=== PATIENT | male | born 1980 | race Two or more races ===

== ENCOUNTER → 2024-09-01 11:29 | Outpatient (BNVA) | payer SELFPAY | PROVIDERS: PCP Internal Medicine Rheumatology; Visit Provider Physician Assistant Medical | DX: Z02.79 Encounter for issue of other medical certificate (principal) ==

== ENCOUNTER 2025-01-07 10:55 | Outpatient (AMB) | payer OTHER, SELFPAY ==
--- NOTE | 2025-01-07 11:00 | MHC.OFFVIS ---
Vital Signs 01/07/25 11:07 Height 5 ft 11.65 in Weight 209 lb 3.499 oz BMI 28.6 BP 110/70 Blood Pressure Location Rt brachial Position Sitting Pulse 97 Pulse Source Pulse Oximeter Pulse Oximetry (%) 97 Oxygen Delivery Method Room Air Intake Visit Reasons: arthritis Intake Note: Pt presents today for arthritis Allergies hydroxychloroquine Allergy (Severe, Verified 01/07/25 11:11) hives amoxicillin Allergy (Verified 01/07/25 11:11) Rash Penicillins Allergy (Verified 01/07/25 11:11) Rash HPI HPI arthritis: Details: New patient visit. Chadian speak. Friend interprets. He was treated for inflammatory arthritis by Dr. Shaw on SSZ 1000mg BID and myofascial pain for gabapentin 300mg qhs. Gabapentin causes sleepiness. He cannot take it during the day. He had swelling in ankles, hands and chronic lower back pain for years. He continues to swelling and pain in hands and left medial elbow. He has elbow pain with activity. He has had heel pain. He recently got new work shoes with custom insoles. No history of PsO or IBD or iritis. He had an episode of bleeding per rectum last week and has colonscopy scheduled for further eval. Lower back pain with sharp pain radiates to buttocks. Increase pain with walking long distances. He has not gone to PT. PMx and Psx: R biceps and R rotator cuff tendon repair by [facility] after workplace injury. Mother had fibromyalgia and arthritis. 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 Occationally drinks alcohol. Nonsmoker. [facility] Medical History (Updated 01/07/25 @ 12:38 by Lopez Weber MD) Rotator cuff injury Review of Systems Const All systems reviewed & are unremarkable except as noted in HPI and below Physical Exam Vital Signs: Last Vital Signs Pulse 97 01/07/25 11:07 BP 110/70 01/07/25 11:07 Pulse Ox 97 01/07/25 11:07 Oxygen Delivery Method Room Air 01/07/25 11:07 BMI result Body Mass Index 28.6 Const Other: General: Comfortable CVS: RRR Respiratory: clear to auscultation bilaterally. Good respiratory effort Skin: No lesions seen MSK:Tender R 3rd and 5th MCP, PIPs of right hand with synovitis of R 5th MCP, PIP and left 2nd MCP. TEnder left medial epicondyl without pain on resisted wrist extension. Normal ROM of shoulders and elbows. 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 Tender bilateral heels at plantar aponeurosis. Soft tissue swelling of right heel. No MTP tenderness. Limited full external rotation of hips. Normal knee flexion. Tender lumbar spinous process, paraspinal muscles and laterally. Normal lumbar flexion and ROM of cervical spine. Assessment & Plan Assessment & Plan (1) Inflammatory arthritis: Comment: He continues to have uncontrolled inflammatory arthritis affecting his hands on sulfasalazine 1000 mg twice a day. He has enthesitis on exam (left medial epicondyle tenderness and localized pain of bilateral plantar aponeurosis). Last week he had an episode of bloody stool, which is being evaluated with colonoscopy in April. 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 I have ordered laboratory workup and x-rays for evaluation of his inflammatory arthritis. Code(s): M19.90 - Unspecified osteoarthritis, unspecified site Category: Medical Plan: Labs ordered X-rays ordered Increase sulfasalazine to 1500 mg twice a day after lab results are back I am avoiding prednisone and NSAIDs due to his recent episode of bloody stools Gabapentin is not providing control of patient's pain. He has increased somnolence when he takes it during the day. I recommend discontinuing gabapentin Return to clinic in 2-4 weeks to review results (2) Low back pain: Comment: Chronic. He has myofascial strain contributing to his pain. Code(s): M54.50 - Low back pain, unspecified Category: Medical Plan: X-ray L-spine ordered to evaluate for spinal pathology contributing to his back pain Apply heat to back daily Physical therapy ordered for back strengthening, myofascial release, TENs unit trial (3) Myofascial low back pain: Code(s): M54.50 - Low back pain, unspecified Category: Medical Plan: See above (4) Medial epicondylitis, left elbow: Comment: Suspected Code(s): M77.02 - Medial epicondylitis, left elbow Category: Medical Plan: Elbow support band prescribed OT ordered (5) Heel pain, bilateral: Comment: Chronic. Code(s): M79.671 - Pain in right foot; M79.672 - Pain in left foot Category: Medical Plan: X-ray bilateral feet ordered Discussed importance of wearing supportive footwear. 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 Return to clinic in 2-4 weeks to discuss results Orders: Orders Alanine Aminotransferase Today Z79.60 - penitentiary (current) use of unspecified immunomodulators and immunosuppressants Complete Blood Count Auto Diff Today Z79.60 - scheduling coordinator (current) use of unspecified immunomodulators and immunosuppressants C Reactive Protein Today Z79.899 - Other curriculum and assessment director (current) drug therapy Rheumatoid Factor Today M19.90 - Unspecified osteoarthritis, unspecified site T Spot TB Today M19.90 - Unspecified osteoarthritis, unspecified site XR foot RT min 3V Today M19.90 - Unspecified osteoarthritis, unspecified site XR foot LT min 3V Today M54.50 - Low back pain, unspecified XR hand RT min 3V Today M19.90 - Unspecified osteoarthritis, unspecified site OT Evaluation and Treatment Today M77.02 - Medial epicondylitis, left elbow Aspartate Amino Transferase Today Z79.60 - penitentiary (current) use of unspecified immunomodulators and immunosuppressants Creatinine Today Z79.60 - penitentiary (current) use of unspecified immunomodulators and immunosuppressants Erythrocyte Sedimentation Rate Today Z79.899 - Other curriculum and assessment director (current) drug therapy Cyclic Citrullinated Peptide Today M19.90 - Unspecified osteoarthritis, unspecified site Hepatitis B,C Profile Today M19.90 - Unspecified osteoarthritis, unspecified site HLA B27 Today M19.90 - Unspecified osteoarthritis, unspecified site ALBA Reflex Titer and Pattern Today M19.90 - Unspecified osteoarthritis, unspecified site XR hand LT min 3V Today M19.90 - Unspecified osteoarthritis, unspecified site XR lumbar spine 2-3V Today M54.50 - Low back pain, unspecified PT Evaluation and Treatment Today M54.50 - Low back pain, unspecified Medications: New arm brace As directed Dx: left medial epicondylitis elbow support band 1 ea 0RF Coding Level of Care Code New Pt Level 4 (58522) Diagnoses Inflammatory arthritis M19.90 Low back pain M54.50 Myofascial low back pain M54.50 Medial epicondylitis, left elbow M77.02 Heel pain, bilateral M79.671; M79.672
[2025-01-07 11:07] VITALS: BP 110/70; PULSE 97; O2SAT 97; BMI 28.6
--- OUTSIDE RECORDS SUMMARY | 2025-01-07 12:44 | XMS_ITS | Continuity of Care Document ---
Author Organization [facility] Address [address] [place] [address]- Care Team Providers Care Borematic Operator Name Role Phone Leah Duffy MD Primary Care Physician Encounter [facility] Date(s): 12/03/24 - 01/02/25 [facility]/[address] [address]- Encounter Type: Triage Allergies, Adverse Reactions, Alerts Substance Criticality Severity Reaction Reaction Severity Status amoxicillin Active hydroxychloroquine Skin rash A ctive penicillins Active Immunizations Given and Recorded Vaccine Date Status Refusal Reason SARS-CoV-2(COVID-19)mRNA-LNP vac(rsf325) 10/17/24 Given influenza virus vaccine, inactivated 10/17/24 Give n influenza virus vaccine, inactivated 07/31/23 Give n influenza virus vaccine, inactivated 11/27/22 Give n influenza virus vaccine, inactivated 01/06/22 Give n influenza virus vaccine, inactivated 08/17/20 Give n influenza virus vaccine, inactivated 12/01/19 Give n influenza virus vaccine, inactivated 1 11/03/11 Gi merlene SARS-CoV-2 mRNA ([id number]-treyf) vax 07/31/23 Recorded SARS-CoV-2 mRNA (xgckggm-ewln-wuocu) vax 03/14/22 Given PAVI-OqG-7ySGN 12y+ bivalent booster vax 11/16/22 Given SARS-CoV-2 (COVID-19) mRNA BNT-162b2 vac 10/07/21 Given SARS-CoV-2 (COVID-19) mRNA BNT-162b2 vac 04/07/21 Given SARS-CoV-2 (COVID-19) mRNA BNT-162b2 vac 03/17/21 Given pneumococcal 23-valent vaccine 06/27/21 Given tetanus/diphtheria/pertussis, acel(Tdap) 12/01/20 Given tetanus/diphtheria/pertussis, acel(Tdap) 2 11/03/11 Given hepatitis B adult vaccine 3 06/18/15 Given hepatitis B adult vaccine 4 01/05/12 Given hepatitis B adult vaccine 5 11/09/11 Given 1Admin Note: vis given 06/07/10 2Admin Note: vis given 3Result Comment: [06/18/2015] ordered by Aaron Zhong MD 4Admin Note: VIS GIVEN 12/10/2011 5Admin Note: VIS GIVEN 05/04 Medications ammonium lactate topical cream 1 application, Topically, 2 times a day, apply to dry areas of feet, # 85 Gm, 11 Refills, Maintenance, 11/28/23 4:43:00 PM EST, Cream, [facility]/pharmacy #[id number], Partial fill upon patient request if the prescription is for a schedule II opioid drug., 1 application Topically 2 times a day,Instr:apply to dryareas of feet, 180, cm, 11/28/23 15:52:00 EST, Height, 102.18, kg, 11/28/23 15:45:00 EST, Dry Weight Start Date: 11/28/23 Status: Ordered Quantity: 85.0 Unit: g Repeat number: 12 Aspirin Low Dose 81 mg oral delayed release tablet See Instructions, TAKE 1 TABLET BY MOUTH EVERY DAY, # 90 tablet, 3 Refills, Maintenance, 10/17/24 12:10:00 PM EST, [facility]/pharmacy #[id number], 180, cm, 10/17/24 8:40:00 EST, Height, 95.5, kg, 02/21/24 6:55:00 EDT, Dry Weight Start Date: 10/17/24 Status: Ordered Quantity: 90.0 Unit: tablet Repeat number: 4 baclofen 5 mg oral tablet 1 tablet = 5 mg, By Mouth, 3 times a day, PRN Spasm, # 21 tablet, 0 Refills, Maintenance, 11/28/24 10:43:00 AM EST, Tablet, [facility], Partial fill upon patient request if the prescription is for a schedule II opioid drug., 180, cm, 11/28/24 10:08:00 EST, Height, 92.81, kg, 11/28/24 10:08:00 EST, Dry Weight Start Date: 11/28/24 Stop Date: 12/05/24 Status: Ordered Quantity: 21.0 Unit: tablet Repeat number: 1 clotrimazole 1% topical cream 1 application, Topically, 2 times a day, to rash on instep of left foot twice daily for one month, # 60 Gm, 1 Refills, Maintenance, 07/31/23 1:40:00 PM EDT, Cream, [facility]/pharmacy #[id number], please instruct pt. on what to buy if insurance dose not cover, 1 application Topically 2 times a day,Instr:to rash on instep of left foot twice daily for one month, 180, cm, 07/31/23 11:08:00 EDT, Height, 101.9, kg,11/06/22 6:42:00 EST, Dry Weight Start Date: 07/31/23 Status: Ordered Quantity: 60.0 Unit: g Repeat number: 2 gabapentin 300 mg oral capsule 300 mg, 1, capsule, By Mouth, Daily at bedtime, # 90 capsule, Refills 3, Tot. Refills 3, Maintenance, 02/28/24 2:10:00 PM EDT, Route to Pharmacy Electronically, [facility]/pharmacy #[id number], Partial fill upon patient request if the prescription is for a schedule II opioid drug., 180, cm, 02/27/24 16:57:00 EDT,Height, 95.5, kg, 02/21/24 6:55:00 EDT, Dry Weight Start Date: 02/28/24 Status: Ordered Quantity: 90.0 Unit: capsule Repeat number: 4 Glucose Test Strips See Instructions, # 30 each, Refills 6, Tot. Refills 6, Maintenance, Use test strips with glucometer and check BG daily, 06/28/20 1:02:00 PM EDT, Supply, 180, cm, 06/28/20 10:36:00 EDT, Height, 103.8,kg, 10/19/19 11:19:00 EST, Dry Weight Start Date: 06/28/20 Status: Ordered Quantity: 30.0 Unit: each Repeat number: 7 Home Blood Pressure Monitor See Instructions, # 1 each, Maintenance, Automatic BP cuff. Dx: I.10 (Hypertension). type 2 dm. Goal SBP <130, 11/28/23 4:45:00 PM EST, Supply Start Date: 11/28/23 Status: Ordered Quantity: 1.0 Unit: each Repeat number: 1 lisinopril 5 mg oral tablet 5 mg, 1, tablet, By Mouth, Daily, # 90 tablet, Refills 3, Tot. Refills 3, Maintenance, 10/17/24 12:11:00 PM EST, Route to Pharmacy Electronically, [facility]/pharmacy #[id number], Partial fill upon patient request if the prescription is for a schedule II opioid drug., 180, cm, 10/17/24 8:40:00 EST, Height, 95.5, kg, 02/21/24 6:55:00 EDT, Dry Weight Start Date: 10/17/24 Status: Ordered Quantity: 90.0 Unit: tablet Repeat number: 4 meloxicam 15 mg oral tablet 1 tablet = 15 mg, By Mouth, Daily, # 90 tablet, 1 Refills, Maintenance, 10/27/24 11:22:00 AM EST, Tablet, [facility]/pharmacy #[id number], Partial fill upon patient request if the prescription is for a schedule II opioid drug., 180, cm, 10/17/24 8:40:00 EST, Height, 95.5, kg, 02/21/24 6:55:00 EDT, Dry Weight Start Date: 10/27/24 Status: Ordered Quantity: 90.0 Unit: tablet Repeat number: 2 metFORMIN 500 mg oral tablet, extended release 2 tablet = 1,000 mg, By Mouth, 2 times a day, # 360 tablet, 3 Refills, Maintenance, 04/01/24 4:55:00 PM EDT, [facility]/pharmacy #[id number], Partial fill upon patient request if the prescription is for a schedule II opioid drug., 180, cm, 02/27/24 16:57:00 EDT, Height, 95.5, kg, 02/21/24 6:55:00 EDT, Dry Weight Start Date: 04/01/24 Status: Ordered Quantity: 360.0 Unit: tablet Repeat number: 4 omeprazole 20 mg oral enteric coated capsule 1 capsule, By Mouth, Daily, # 90 capsule, 1 Refills, Maintenance, 08/04/24 4:40:00 PM EDT, [facility]/pharmacy #[id number], 180, cm, 08/04/24 15:17:00 EDT, Height, 95.5, kg, 02/21/24 6:55:00 EDT, Dry Weight Start Date: 08/04/24 Status: Ordered Quantity: 90.0 Unit: capsule Repeat number: 2 rosuvastatin 10 mg oral tablet 1 tablet = 10 mg, By Mouth, Daily, # 90 tablet, 3 Refills, Maintenance, 12/03/24 2:00:00 PM EST, Tablet, [facility]/pharmacy #[id number], Partial fill upon patient request if the prescription is for a schedule II opioid drug., 180, cm, 11/28/24 10:08:00 EST, Height, 92.81, kg, 11/28/24 10:08:00 EST, Dry Weight Start Date: 12/03/24 Status: Ordered Quantity: 90.0 Unit: tablet Repeat number: 4 sulfaSALAzine 500 mg oral delayed release tablet 2 tablet = 1,000 mg, By Mouth, 2 times a day, TAKE 1 TABLET BY MOUTH TWICE A DAY, # 360 tablet, 1 Refills, Maintenance, 10/27/24 11:22:00 AM EST, EC Tablet, [facility]/pharmacy #[id number], Partial fill upon patient request if the prescription is for a schedule II opioid drug., 180, cm, 10/17/24 8:40:00 EST, Height, 95.5, kg, 02/21/24 6:55:00 EDT, Dry Weight Start Date: 10/27/24 Stop Date: 04/25/25 Status: Ordered Quantity: 360.0 Unit: tablet Repeat number: 2 Problem List Condition Confirmation Course Effective Dates Status Health Status Informant Acromioclavicular joint 1 Confirmed Active Inflammatory arthropathy Confirmed 06/02/20 Active CKD (chronic kidney disease), stage I Confirmed Active Hypertension 2 Confirmed 12/29/20 Active Hypertriglyceridemia Confirmed 10/02/18 Active H. pylori infection 3 Confirmed 07/01/21 Active Shoulder dislocation 4 Confirmed 10/06/10 Active Type 2 diabetes mellitus: A1C 6.7 Confirmed 10/02/19 Active 1Chronic type III separation, Stable. 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 Social History Social History Type Response Smoking Status Former smoker, quit more than 30 days ago entered on: 07/31/23 Sex Sex Representation Male (finding) Patient Care team information Care Team Personnel Name: Tati MERIDA, Leah Haider Position: S Physician - Primary Care Member Role: PCP Address: [address] [place] [address] Telecom: Care Team Related Persons Name: WILVER GREEN Name: JUAQUIN GAMBOA Insurance Providers Guarantor name: IVY GAMBOA Health Plan Information #: 1 Payer: [email or web address]MAN[employer] Member Number: NA Policy Number: NA Group Number: NA
--- OUTSIDE RECORDS SUMMARY | 2025-01-07 12:44 | XMS_ITS | Clinical Summary ---
Author Organization [facility] Address [address] [place] [address] Care Team Providers Care Straightener Name Role Phone Unavailable Primary Care Provider Unavailabl e Social History Tobacco Use Types Packs/Day Years Used Date Smoking Tobacco: Never Assessed Sex and Gender Information Value Date Recorded Sex Assigned at Not on file Legal Sex Male 4:15 AM EST Gender Identity Not on file Sexual Orientation Not on file Plan of Treatment Health Maintenance Due Date Last Done Comments DTaP,Tdap,and Td Vaccines (1 - Tdap) 1997 Hepatitis B Vaccines (1 of 3 - 19+ 3-dose series) 1997 COVID-19 Vaccine (2023-2 5 season) 2024 Influenza Vaccine (#1) 2024 HIB Vaccines Aged Out No longer eligi ble based on patient's age to complete this topic HPV Vaccines Aged Out No longer eligi ble based on patient's age to complete this topic Hepatitis A Vaccines Aged Out No long er eligible based on patient's age to complete this topic IPV Vaccines Aged Out No longer eligi ble based on patient's age to complete this topic MMR Vaccines Aged Out No longer eligi ble based on patient's age to complete this topic Meningococcal ACWY Vaccine Aged Out N o longer eligible based on patient's age to complete this topic Meningococcal B Vacine Aged Out No lo nger eligible based on patient's age to complete this topic Pneumococcal Vaccine: Pediat rics (0 to 5 Years) and At-Risk Patients (6 to 64 Years) Aged Out No longer eligible b ased on patient's age to complete this topic RSV Immunization Patients Un mayra 20 months Aged Out No longer eligible b ased on patient's age to complete this topic Varicella Vaccines Aged Out No longer eligible based on patient's age to complete this topic
--- OUTSIDE RECORDS SUMMARY | 2025-01-07 12:44 | XMS_ITS | Patient Health Record ---
Author Organization [facility] [place] Address [address] [place] [address] Care Team Providers Care Learning Technologist Name Role Phone Rebecca, Mark Unavailable [phone] Allergies Allergen (clinical drug ingredient) Drug/Non Drug Allergy documented on EMR Reaction Allergy Type Onset Date Status amoxicillin Amoxicillin Rash Drug Allergy Act zachery Reason For Referral No Information Medications Medication SIG (Take, Route, Fr equency, Duration) Notes Start Date End Date Status metFORMIN HCl 500 MG 1 tablet with a leah l Orally Once a day Active Meloxicam 15 MG 1 tablet Orally Once a day Active Lisinopril 5 MG 2 tablets Orally Once a day Active Gabapentin 300 MG 1 capsule Orally Once a day Active Tylenol Active sulfaSALAzine 500 MG 1 tablet Orally Once a day Active Omeprazole 20 MG 1 capsule 1/2 to 1 h our before morning meal Orally Once a day A ctive Aspirin 81 MG 1 tablet Orally Once a day Active Social History [...] Negative Encounters Encounter Location Date Provider Diagnosis [facility] [address] [place] [address] 06/26/2024 Mark Fernandez Plan Of Treatment No Information Insurance Providers Payer Name Payer Address Payer Phone Subscriber Number Group Number Insured Name Patient Relationship to Insured Coverage Start Date Coverage End Date [facility] [address] [place] [address] [id number] Eugene Castro Self - patient is the insured Medical (General) History Medical History History ICD Code asthma Back,Hip,and Knee pain Diabetic Chicken pox High Blood Pressure
--- OUTSIDE RECORDS SUMMARY | 2025-01-07 12:44 | XMS_ITS ---
Author Organization [facility] Address [address] [place] [address] Care Team Providers Care Abe Teacher Name Role Phone Mark Fernandez Unavailable [phone] REASON FOR VISIT GEOLOGICAL TECHNICIAN Encounters Encounter Location Date Provider Diagnosis [facility] [address] [place] [address] 06/26/2024 Mark Fernandez Plan Of Treatment No Information Progress Notes * Eugene CASTRODOB:1980 (43 yo M)Acc No.[id number]:06/26/2024 Patient:?Eugene Castro :1980???Age:43 Y???Sex:Male Address:[address] [place] [address] * true * Date:? Generated for Rayi winter/Jed/eTransmitting on:?01/07/2025 12:44 PM EDT
--- OUTSIDE RECORDS SUMMARY | 2025-01-07 12:44 | XMS_ITS ---
Author Organization [facility] Address [address] [place] [address] Care Team Providers Care Loop Sewer Name Role Phone Mark Fernandez Unavailable [phone] Allergies Allergen (clinical drug ingredient) Drug/Non Drug [...] Negative Encounters Encounter Location Date [facility] [address] [address] 11/06/2024 Mark Fernandez Plan Of Treatment No Information Progress Notes * MATTHEW ManjeetbrianDOB:1980 (44 yo M)Acc No.[id number]:11/06/2024 Progress Notes Patient:?Eugene CASTRO Provider:?Mark Fernandez DPM :1980???Age:44 Y???Sex:Male Barrera e:11/06/2024 Address:[address] [place] [address] Subjective: * Chief Complaints: * ???1. PT has B-Healthy. * Medical History:?Asthma, Dhiraj k,Hip,and Knee pain, Diabetic, Chicken pox, High Blood Pressure. * Family History:?Mother: dece ased, kidney/liver disease, diagnosed with Diabetic - NIDDM, Unspecified essential hypertension, Family history of arthritis.?Father: alive, stroke, cancer, heart attack, diagnosed with Diabetic - NIDDM.? * Social History:?Tobacco Use:?Tobacco use other than smoking?Are you an other tobacco user??No ?Tobacco Control (Standard)?Tobacco use:?Nonsmoker ?Additional Findings: Tobacco non-user?Current nonsmoker ???Drugs/Alcohol:?Drugs?Have you used drugs other than those for medical reasons in the past 12 months??No ???Miscellaneous:?Caffeine: yes, frequency:, 1-2 cups per day. ???Drug/Alcohol:?AUDIT-C (Standard)?Did you have a drink containing alcohol in the past year??No ?Points?0 ?Interpretation?Negative * Medications:?Taking Aspirin 81 MG Tablet Delayed Release 1 [...] Once a day , Taking Tylenol * Allergies:?Amoxicillin: Rash . Objective: * Vitals:? Assessment: Plan: * Treatment: * Images: * The named appointment provid er may or may not be the originator of this progress note, and it is not deemed complete until electronically signed by the appointment provider. Sign off status: Pending * Provider:?Mark Fernandez DPM Date:?2024 Generated for Saravanan max/Jed/Marianne on:?01/07/2025 12:44 PM EDT
--- OUTSIDE RECORDS SUMMARY | 2025-01-07 12:44 | XMS_ITS | Continuity of Care Document ---
Author Organization [facility] Address [address] [place] [address]- Care Team Providers Care Ecommerce Merchandising Manager Name Role Phone Leah Duffy MD Primary Care Physician [phone] [id number] Date(s): 08/28/24 - 12/26/24 [facility]/[address] [address]- Attending Physician: Leah Duffy MD Admitting Physician: Leah Duffy MD Encounter Type: Pre-OutPatient One Time Allergies, Adverse Reactions, Alerts Substance Criticality Severity Reaction Reaction Severity Status amoxicillin Active hydroxychloroquine Skin rash A ctive penicillins Active Immunizations Given and Recorded Vaccine Date Status Refusal Reason SARS-CoV-2(COVID-19)mRNA-LNP vac([id number]) 10/17/24 Given influenza virus vaccine, inactivated 10/17/24 Give n influenza virus vaccine, inactivated 07/31/23 Give n influenza virus vaccine, inactivated 11/27/22 Give n influenza virus vaccine, inactivated 01/06/22 Give n influenza virus vaccine, inactivated 08/17/20 Give n influenza virus vaccine, inactivated 12/01/19 Give n influenza virus vaccine, inactivated 1 11/03/11 Gi merlene SARS-CoV-2 mRNA (byfwhmk-xnzb-zkfiq) vax 07/31/23 Recorded SARS-CoV-2 mRNA (zpgavwx-soee-nbfqb) vax 03/14/22 Given [id number] 12y+ bivalent booster vax 11/16/22 Given SARS-CoV-2 [...] Refills, Maintenance, 11/28/23 4:43:00 PM EST, Cream, [facility]/pharmacy #[id number], Partial fill upon patient request if [...] 3 Refills, Maintenance, 10/17/24 12:10:00 PM EST, [id number], 180, cm, 10/17/24 8:40:00 EST, Height, 95.5, kg, 02/21/24 6:55:00 EDT, Dry Weight Start Date: 10/17/24 Status: Ordered Quantity: 90.0 Unit: tablet Repeat number: 4 baclofen 5 mg oral tablet 1 tablet = 5 mg, By Mouth, 3 times a day, PRN Spasm, # 21 tablet, 0 Refills, Maintenance, 11/28/24 10:43:00 AM EST, Tablet, [facility], Partial fill upon patient request if [...] Refills, Maintenance, 07/31/23 1:40:00 PM EDT, Cream, [facility]/pharmacy #[id number], please instruct pt. on what to [...] 2:10:00 PM EDT, Route to Pharmacy Electronically, [facility]/pharmacy #[id number], Partial fill upon patient request if [...] 12:11:00 PM EST, Route to Pharmacy Electronically, [facility]/pharmacy #[id number], Partial fill upon patient request if [...] Refills, Maintenance, 10/27/24 11:22:00 AM EST, Tablet, [facility]/pharmacy #[id number], Partial fill upon patient request if [...] 3 Refills, Maintenance, 04/01/24 4:55:00 PM EDT, [facility]/pharmacy #[id number], Partial fill upon patient request if the prescription is for a schedule II opioid drug., 180, cm, 02/27/24 16:57:00 EDT, Height, 95.5, kg, 02/21/24 6:55:00 EDT, Dry Weight Start Date: 04/01/24 Status: Ordered Quantity: 360.0 Unit: tablet Repeat number: 4 omeprazole 20 mg oral enteric coated capsule 1 capsule, By Mouth, Daily, # 90 capsule, 1 Refills, Maintenance, 08/04/24 4:40:00 PM EDT, [facility]/pharmacy #[id number], 180, cm, 08/04/24 15:17:00 EDT, Height, 95.5, kg, 02/21/24 6:55:00 EDT, Dry Weight Start Date: 08/04/24 Status: Ordered Quantity: 90.0 Unit: capsule Repeat number: 2 rosuvastatin 10 mg oral tablet 1 tablet = 10 mg, By Mouth, Daily, # 90 tablet, 3 Refills, Maintenance, 12/03/24 2:00:00 PM EST, Tablet, [facility]/pharmacy #[id number], Partial fill upon patient request if [...] Maintenance, 10/27/24 11:22:00 AM EST, EC Tablet, [facility]/pharmacy #[id number], Partial fill upon patient request if [...] 2Mild LVH on ECHO 07/2021 3treated 06/2021 [id number] since fell down on R shoulder. Social History Social History Type Response Smoking Status Former smoker, quit more than 30 days ago entered on: 07/31/23 Sex Sex Representation Male (finding) Patient Care team information Care Team Personnel Name: Tati MERIDA, Leah Haider Position: [facility] Physician - Primary Care Member Role: PCP Address: [address] [place] [address] Telecom: Care Team Related Persons Name: WILVER GREEN Name: JUAQUIN GAMBOA Insurance Providers Guarantor name: IVY GAMBOA Health Plan Information #: 2 Payer: [facility] Member Number: [id number] Policy Number: NA Group Number: [id number] Health Plan Information #: 1 Payer: [employer] Member Number: [id number] Policy Number: NA Group Number: [id number]
--- OUTSIDE RECORDS SUMMARY | 2025-01-07 12:45 | XMS_ITS | Continuity of Care Document ---
Author Organization [facility] Address [address] [place] [address]- Care Team Providers Care Manager Produce Name Role Phone Leah Duffy MD Primary Care Physician Encounter [facility] Date(s): 11/27/24 - 12/27/24 [facility]/[address] [address]- Encounter Type: Triage Allergies, Adverse Reactions, Alerts Substance Criticality Severity Reaction Reaction Severity Status amoxicillin Active hydroxychloroquine Skin rash A ctive penicillins Active Immunizations Given and Recorded Vaccine Date Status Refusal Reason SARS-CoV-2(COVID-19)mRNA-LNP vac([id number]) 10/17/24 Given influenza virus vaccine, inactivated 10/17/24 Give n influenza virus vaccine, inactivated 07/31/23 Give n influenza virus vaccine, inactivated 11/27/22 Give n influenza virus vaccine, inactivated 01/06/22 Give n influenza virus vaccine, inactivated 08/17/20 Give n influenza virus vaccine, inactivated 12/01/19 Give n influenza virus vaccine, inactivated 1 11/03/11 Gi merlene SARS-CoV-2 mRNA (cjprqbm-kjpp-ftbnm) vax 07/31/23 Recorded SARS-CoV-2 mRNA (igdyqrz-mkww-isusu) vax 03/14/22 Given JFIV-JdF-7qROR 12y+ bivalent booster vax 11/16/22 Given SARS-CoV-2 [...] Refills, Maintenance, 11/28/23 4:43:00 PM EST, Cream, [facility]/pharmacy #[id number], Partial fill upon patient request if [...] 3 Refills, Maintenance, 10/17/24 12:10:00 PM EST, [facility]/pharmacy #[id number], 180, cm, 10/17/24 8:40:00 EST, Height, 95.5, kg, 02/21/24 6:55:00 EDT, Dry Weight Start Date: 10/17/24 Status: Ordered Quantity: 90.0 Unit: tablet Repeat number: 4 baclofen 5 mg oral tablet 1 tablet = 5 mg, By Mouth, 3 times a day, PRN Spasm, # 21 tablet, 0 Refills, Maintenance, 11/28/24 10:43:00 AM EST, Tablet, [facility], Partial fill upon patient request [...] Refills, Maintenance, 07/31/23 1:40:00 PM EDT, Cream, [facility]/pharmacy #[id number], please instruct pt. on what to [...] 2:10:00 PM EDT, Route to Pharmacy Electronically, [facility]/pharmacy #[id number], Partial fill upon patient request if [...] 12:11:00 PM EST, Route to Pharmacy Electronically, [facility]/pharmacy #[id number], Partial fill upon patient request if [...] Refills, Maintenance, 10/27/24 11:22:00 AM EST, Tablet, [facility]/pharmacy #[id number], Partial fill upon patient request if [...] 3 Refills, Maintenance, 04/01/24 4:55:00 PM EDT, [facility]/pharmacy #[id number], Partial fill upon patient request if the prescription is for a schedule II opioid drug., 180, cm, 02/27/24 16:57:00 EDT, Height, 95.5, kg, 02/21/24 6:55:00 EDT, Dry Weight Start Date: 04/01/24 Status: Ordered Quantity: 360.0 Unit: tablet Repeat number: 4 omeprazole 20 mg oral enteric coated capsule 1 capsule, By Mouth, Daily, # 90 capsule, 1 Refills, Maintenance, 08/04/24 4:40:00 PM EDT, [facility]/pharmacy #[id number], 180, cm, 08/04/24 15:17:00 EDT, Height, 95.5, kg, 02/21/24 6:55:00 EDT, Dry Weight Start Date: 08/04/24 Status: Ordered Quantity: 90.0 Unit: capsule Repeat number: 2 rosuvastatin 10 mg oral tablet 1 tablet = 10 mg, By Mouth, Daily, # 90 tablet, 3 Refills, Maintenance, 12/03/24 2:00:00 PM EST, Tablet, [facility]/pharmacy #[id number], Partial fill upon patient request if [...] Maintenance, 10/27/24 11:22:00 AM EST, EC Tablet, [facility]/pharmacy #[id number], Partial fill upon patient request if [...] 2Mild LVH on ECHO 07/2021 3treated 06/2021 [id number] since fell down on R shoulder. Social History Social History Type Response Smoking Status Former smoker, quit more than 30 days ago entered on: 07/31/23 Sex Sex Representation Male (finding) Patient Care team information Care Team Personnel Name: Tati MERIDA, Leah Haider Position: S Physician - Primary Care Member Role: PCP Address: [address] [place] [address] Telecom: Care Team Related Persons Name: WILVER GREEN Name: JUAQUIN GAMBOA Insurance Providers Guarantor name: IVY GAMBOA Health Plan Information #: 1 Payer: [employer] [place] Member Number: NA Policy Number: NA Group Number: NA
--- OUTSIDE RECORDS SUMMARY | 2025-01-07 12:45 | XMS_ITS | Continuity of Care Document ---
Author Organization [facility] Address [address] [place] [address]- Care Team Providers Care Tailman Name Role Phone Leah Duffy MD Primary Care Physician Encounter [facility] Date(s): 12/01/24 - 12/31/24 [facility]/[address] [address]- Encounter Type: Triage Allergies, Adverse Reactions, Alerts Substance Criticality Severity Reaction Reaction Severity Status amoxicillin Active hydroxychloroquine Skin rash A ctive penicillins Active Immunizations Given and Recorded Vaccine Date Status Refusal Reason SARS-CoV-2(COVID-19)mRNA-LNP vac([id number]) 10/17/24 Given influenza virus vaccine, inactivated 10/17/24 Give n influenza virus vaccine, inactivated 07/31/23 Give n influenza virus vaccine, inactivated 11/27/22 Give n influenza virus vaccine, inactivated 01/06/22 Give n influenza virus vaccine, inactivated 08/17/20 Give n influenza virus vaccine, inactivated 12/01/19 Give n influenza virus vaccine, inactivated 1 11/03/11 Gi merlene SARS-CoV-2 mRNA (ibcuihg-bfbb-cnkge) vax 07/31/23 Recorded SARS-CoV-2 mRNA (nkuwuyg-kusz-ptuiw) vax 03/14/22 Given [id number]-PaV-[id number] 12y+ bivalent booster vax 11/16/22 Given SARS-CoV-2 [...] Refills, Maintenance, 11/28/23 4:43:00 PM EST, Cream, [facility]/pharmacy #[id number], Partial fill upon patient request [...] 3 Refills, Maintenance, 10/17/24 12:10:00 PM EST, [facility]/pharmacy #[id number], 180, cm, 10/17/24 8:40:00 EST, Height, 95.5, kg, 02/21/24 6:55:00 EDT, Dry Weight Start Date: 10/17/24 Status: Ordered Quantity: 90.0 Unit: tablet Repeat number: 4 baclofen 5 mg oral tablet 1 tablet = 5 mg, By Mouth, 3 times a day, PRN Spasm, # 21 tablet, 0 Refills, Maintenance, 11/28/24 10:43:00 AM EST, Tablet, [facility], Partial fill upon patient request if the [...] Refills, Maintenance, 07/31/23 1:40:00 PM EDT, Cream, [facility]/pharmacy #[id number], please instruct pt. on what [...] 2:10:00 PM EDT, Route to Pharmacy Electronically, [facility]/pharmacy #[id number], Partial fill upon patient request [...] 12:11:00 PM EST, Route to Pharmacy Electronically, [facility]/pharmacy #[id number], Partial fill upon patient request [...] Refills, Maintenance, 10/27/24 11:22:00 AM EST, Tablet, [facility]/pharmacy #[id number], Partial fill upon patient request [...] 3 Refills, Maintenance, 04/01/24 4:55:00 PM EDT, [facility]/pharmacy #[id number], Partial fill upon patient request [...] 1 Refills, Maintenance, 08/04/24 4:40:00 PM EDT, [facility]/pharmacy #[id number], 180, cm, 08/04/24 15:17:00 EDT, Height, 95.5, kg, 02/21/24 6:55:00 EDT, Dry Weight Start Date: 08/04/24 Status: Ordered Quantity: 90.0 Unit: capsule Repeat number: 2 rosuvastatin 10 mg oral tablet 1 tablet = 10 mg, By Mouth, Daily, # 90 tablet, 3 Refills, Maintenance, 12/03/24 2:00:00 PM EST, Tablet, [facility]/pharmacy #[id number], Partial fill upon patient request [...] Maintenance, 10/27/24 11:22:00 AM EST, EC Tablet, [facility]/pharmacy #[id number], Partial fill upon patient request [...] 2Mild LVH on ECHO 07/2021 3treated 06/2021 [address] since fell down on R shoulder. Social History Social History Type Response Smoking Status Former smoker, quit more than 30 days ago entered on: 07/31/23 Sex Sex Representation Male (finding) Patient Care team information Care Team Personnel Name: Tati MERIDA, Leah Haider Position: S Physician - Primary Care Member Role: PCP Address: [address] [place] [address] Telecom: Care Team Related Persons Name: WILVER GREEN Name: JUAQUIN GAMBOA Insurance Providers Guarantor name: IVY GAMBOA Health Plan Information #: 1 Payer: [employer] Member Number: NA Policy Number: NA Group Number: NA
== END 2025-01-07 12:01 | disposition home or self-care (01) ==
PROVIDERS: PCP Internal Medicine Rheumatology; Visit Provider Internal Medicine Rheumatology
DX: M19.90 Unspecified osteoarthritis, unspecified site (principal); M54.50 Low back pain, unspecified; M77.02 Medial epicondylitis, left elbow; M79.671 Pain in right foot; M79.672 Pain in left foot
CPT/HCPCS: 99204

== ENCOUNTER → 2025-01-07 10:55 | Outpatient (BNVA) | payer OTHER, SELFPAY | PROVIDERS: PCP Internal Medicine Rheumatology; Visit Provider Internal Medicine Rheumatology ==

== ENCOUNTER 2025-02-04 08:38 | Outpatient (AMB) | payer OTHER, SELFPAY ==
--- NOTE | 2025-02-04 08:43 | MHC.OFFVIS ---
Vital Signs 02/04/25 08:44 Height 5 ft 11 in Weight 212 lb 15.465 oz BMI 29.7 BP 110/80 Blood Pressure Location Rt brachial Position Sitting Pulse 81 Pulse Oximetry (%) 98 Oxygen Delivery Method Room Air Intake Visit Reasons: 2-4 weeks Intake Note: Pt presents today for arthritis. Allergies hydroxychloroquine Allergy (Severe, Verified 02/04/25 08:43) hives amoxicillin Allergy (Verified 02/04/25 08:43) Rash Penicillins Allergy (Verified 02/04/25 08:43) Rash HPI HPI 2-4 weeks: Details: Right 5th DIPJ is swollen for the last week. It is painful. He is having difficulty with holding things. Tools are falling out of his hand. 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 He is out of meloxicam today. He was utilizing it for joint pain. He does not know if it is helping him. X-rays and labs were done at [facility]. [facility] Medical History Rotator cuff injury Review of Systems Const All systems reviewed & are unremarkable except as noted in HPI and below Physical Exam Vital Signs: Last Vital Signs Pulse 81 02/04/25 08:44 BP 110/80 02/04/25 08:44 Pulse Ox 98 02/04/25 08:44 Oxygen Delivery Method Room Air 02/04/25 08:44 BMI result Body Mass Index 29.7 Const Other: General: Comfortable CVS: RRR Respiratory: clear to auscultation bilaterally. Good respiratory effort Skin: No lesions seen MSK:Tender R 5th DIPJ with swelling and Heberden nodes present. Tender left 2nd PIP. Normal ROM of shoulders and elbows. Good residential youth counselor strength. Normal range of motion of upper extremity. Assessment & Plan Assessment & Plan (1) Inflammatory arthritis: Comment: He continues to have uncontrolled inflammatory arthritis affecting his hands on sulfasalazine 1000 mg twice a day. He developed new right 5th DIPJ swelling with Heberden nodes present likely related to osteoarthritis. Last visit he had enthesitis on exam (left medial epicondyle tenderness and localized pain of bilateral plantar aponeurosis). 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 He did workup with x-rays and labs recently but I only have some lab results, which revealed normal inflammatory markers. Code(s): M19.90 - Unspecified osteoarthritis, unspecified site Category: Medical Plan: Labs ordered last visit. Preliminary results reviewed. Serologies for antibody testing pending. X-rays ordered last visit. We have requested x-ray results from [facility]. Increase sulfasalazine to 1500 mg twice a day after lab results are back I am avoiding prednisone and NSAIDs due to his recent episode of bloody stools He will trial off of meloxicam. He will call office if he experiences increased pain Hand exercises given to patient due to patient working in construction and not having a regular schedule to participate in occupational therapy. Back exercises given to patient Patient will bring in parking placard form. I have agreed to sign temporary placard for 12 months. Return to clinic in 3 months (2) Low back pain: Comment: Chronic. He has myofascial strain contributing to his pain. Code(s): M54.50 - Low back pain, unspecified Category: Medical Qualifiers: Chronicity: chronic Plan: X-ray L-spine ordered to evaluate for spinal pathology contributing to his back pain. X-ray report requested this visit. Apply heat to back daily Back strengthening exercises given to patient Return to clinic in 3 months (3) Myofascial low back pain: Code(s): M54.50 - Low back pain, unspecified Category: Medical Plan: See above (4) Medial epicondylitis, left elbow: Comment: Suspected Code(s): M77.02 - Medial epicondylitis, left elbow Category: Medical Plan: Elbow support band prescribed last visit OT ordered last visit. He is unable to go to OT due to not having a regular schedule working in construction. (5) Heel pain, bilateral: Comment: Chronic. Code(s): M79.671 - Pain in right foot; M79.672 - Pain in left foot Category: Medical Plan: X-ray bilateral feet ordered. X-ray report requested this visit. Discussed importance of wearing supportive footwear. 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 Return to clinic in 3 months Medications: New diclofenac sodium 1% apply to affected area every 4-6 hours PRN 2 grams topical QID 100 grams 5RF Changed From sulfasalazine 1,000 mg PO BID To sulfasalazine 1.5 grams (3 x 500 mg) PO BID 504 tabs 0RF 84 days Coding Level of Care Code Est Pt Level 4 (94464) Complex EM visit Add On G2211 Diagnoses Inflammatory arthritis M19.90 Low back pain M54.50 Chronicity: chronic Myofascial low back pain M54.50 Medial epicondylitis, left elbow M77.02 Heel pain, bilateral M79.671; M79.672
[2025-02-04 08:44] VITALS: BP 110/80; PULSE 81; O2SAT 98; BMI 29.7
--- OUTSIDE RECORDS SUMMARY | 2025-02-04 08:54 | XMS_ITS | Clinical Summary ---
Author Organization [facility] ity Address [address] [place] [address] Care Team Providers Care Prepared Foods Team Leader Name Role Phone Unavailable Primary Care Provider [...] age to complete this topic Meningococcal B Vaccine Aged Out No l onger eligible based on patient's age to complete [...]
--- OUTSIDE RECORDS SUMMARY | 2025-02-04 08:54 | XMS_ITS | Patient Health Record ---
Author Organization [facility] jarek Bruce Address [address] [place] [address] Care Team Providers Care Loom Stop Checker Name Role Phone Rebecca, Mark Unavailable [phone] Allergies Allergen (clinical drug ingredient) Drug/Non Drug [...] Negative Encounters Encounter Location Date Provider Diagnosis [facility] [address] [place] [address] 06/26/2024 Mark Fernandez Plan Of Treatment No Information Insurance Providers Payer Name Payer Address Payer Phone Subscriber Number Group Number Insured Name Patient Relationship to Insured Coverage Start Date Coverage End Date [facility] [address] [place] [address] [phone] [id number] Eugene Castro Self - patient is the insured Medical (General) History Medical History History ICD Code asthma Back,Hip,and Knee pain Diabetic Chicken pox High Blood Pressure
--- OUTSIDE RECORDS SUMMARY | 2025-02-04 08:54 | XMS_ITS ---
Author Organization [facility] Address [address] [place] [address] Care Team Providers Care Cuff Knitter Name Role Phone Mark Fernandez Unavailable [phone] Allergies Allergen (clinical drug ingredient) Drug/Non Drug [...] Negative Encounters Encounter Location Date [facility] [address] [address] 11/06/2024 Mark Fernandez Plan Of Treatment No Information Progress Notes * MATTHEW ManjeetbrianDOB:1980 (44 yo M)Acc No.[id number]:11/06/2024 Progress Notes Patient:?Eugene MARTIN Provider:?Mark Fernandez DPM :1980???Age:44 Y???Sex:Male Barrera e:11/06/2024 Address:[address] [place] [address] Subjective: * Chief Complaints: * ???1. PT [...] Fernandez DPM Date:?2024 Generated for Saravanan max/Jed/Marianne on:?02/04/2025 08:54 AM EDT
--- OUTSIDE RECORDS SUMMARY | 2025-02-04 08:55 | XMS_ITS ---
Author Organization [facility] Address [address] [place] [address] Care Team Providers Care Systems Software Developer Name Role Phone Mark Fernandez Unavailable [phone] REASON FOR VISIT RUG SETTER VELVET Encounters Encounter Location Date Provider Diagnosis [facility] [address] [place] [address] 06/26/2024 Mark Fernandez Plan Of Treatment No Information Progress Notes * Eugene CASTRODOB:1980 (43 yo M)Acc No.[id number]:06/26/2024 Patient:?Eugene Castro :1980???Age:43 Y???Sex:Male Address:[address] [place] [address] * true * Date:? Generated for Rayi winter/Jed/eTransmitting on:?02/04/2025 08:54 AM EDT
== END 2025-02-04 09:25 | disposition home or self-care (01) ==
LOC: HO.RHES 08:38
PROVIDERS: PCP Internal Medicine Rheumatology; Visit Provider Internal Medicine Rheumatology
DX: M19.90 Unspecified osteoarthritis, unspecified site (principal); M54.50 Low back pain, unspecified; M77.02 Medial epicondylitis, left elbow; M79.671 Pain in right foot; M79.672 Pain in left foot
CPT/HCPCS: 99214

== ENCOUNTER → 2025-02-04 08:38 | Outpatient (BNVA) | payer OTHER, SELFPAY | PROVIDERS: PCP Internal Medicine Rheumatology; Visit Provider Internal Medicine Rheumatology ==

== ENCOUNTER 2025-06-23 15:05 | Outpatient (REF) | payer OTHER, SELFPAY ==
--- OUTSIDE RECORDS SUMMARY | 2024-11-06 06:00 | XMS_ITS ---
Author Organization [facility] Address [address] [place] [address] Care Team Providers Care Title I Paraprofessional Name Role Phone Mark Fernandez Unavailable [phone] Allergies Allergen (clinical drug ingredient) Drug/Non Drug Allergy documented on EMR Reaction Allergy Type Onset Date Status amoxicillin Amoxicillin Rash Drug Allergy Act zachery REASON FOR VISIT PT has B-Healthy Medications Medication SIG (Take, Route, Fr equency, Duration) Notes Start Date End Date Status metFORMIN HCl 500 MG 1 tablet with a leah l Orally Once a day Active Tylenol Active sulfaSALAzine 500 MG 1 tablet Orally Once a day Active Omeprazole 20 MG 1 capsule 1/2 to 1 h our before morning meal Orally Once a day A ctive Aspirin 81 MG 1 tablet Orally Once a day Active Meloxicam 15 MG 1 tablet Orally Once a day Active Lisinopril 5 MG 2 tablets Orally Once a day Active Gabapentin 300 MG 1 capsule Orally Once a day Active Social History Tobacco Use: Social History Observation Description Date Details (start date - stop date) Never Smoker NA - NA Tobacco use other than smoking: Question Answer Notes Are you an other tobacco user? No Tobacco Control (Standard) Question Answer Notes Tobacco use: Nonsmoker Additional Findings: Tobacco non-user Current no nsmoker AUDIT-C (Standard) Question Answer Notes Did you have a drink containing alcohol in the p ast year? No Points 0 Interpretation Negative Encounters Encounter Location Date Provider [facility] [address] [address] 11/06/2024 Mark Fernandez Plan Of Treatment No Information Progress Notes * MATTHEW ManjeetbrianDOB:1980 (44 yo M)Acc No.[id number]:11/06/2024 Progress Notes Patient: Eugene ARAUJO Provider: Estela Fernandez DPM :1980 A ge:44 Y S ex:Male Date:11/06/2024 Address:[address] [place] [address] Subjective: * Chief Complaints: * 1 . PT has B-Healthy. * Medical History: A sthma, Back,Hip,and Knee pain, Diabetic, Chicken pox, High Blood Pressure. * Family History: M other: , kidney/liver disease, diagnosed with Diabetic - NIDDM, Unspecified essential hypertension, Family history of arthritis. F ather: alive, stroke, cancer, heart attack, diagnosed with Diabetic - NIDDM. * Social History: T obacco Use: T obacco use other than smoking A re you an other tobacco user? N o Tobacco Control (Standard) T obacco use: N onsmoker A dditional Findings: Tobacco non-user C urrent nonsmoker D rugs/Alcohol: D rugs H ave you used drugs other than those for medical reasons in the past 12 months? N o M iscellaneous: C affeine: yes, frequency:, 1-2 cups per day. D rug/Alcohol: A MARCELINO-C (Standard) D id you have a drink containing alcohol in the past year? N o P oints 0 I nterpretation N egative * Medications: T aking Aspirin 81 MG Tablet Delayed Release 1 tablet Orally Once a day , Taking Gabapentin 300 MG Capsule 1 capsule Orally Once a day , Taking Lisinopril 5 MG Tablet 2 tablets Orally Once a day , Taking Meloxicam 15 MG Tablet 1 tablet Orally Once a day , Taking metFORMIN HCl 500 MG Tablet 1 tablet with a meal Orally Once a day , Taking Omeprazole 20 MG Capsule Delayed Release 1 capsule 1/2 to 1 hour before morning meal Orally Once a day , Taking sulfaSALAzine 500 MG Tablet 1 tablet Orally Once a day , Taking Tylenol * Allergies: A moxicillin: Rash. Objective: * Vitals: Assessment: Plan: * Treatment: * Images: * The named appointment provid er may or may not be the originator of this progress note, and it is not deemed complete until electronically signed by the appointment provider. Sign off status: Pending * Provider: Estela Fernandez DPM Date: 0 11/06/2024 Generated for Saravanan Pacheco on: 06/23/2025 04:00 PM EDT
--- OUTSIDE RECORDS SUMMARY | 2025-06-23 16:00 | XMS_ITS | Patient Health Record ---
Author Organization [facility] jarek [place] Address [address] [place] [address] Care Team Providers Care Equity Research Associate Name Role Phone Rebecca, Mark Unavailable [phone] Allergies Allergen (clinical drug ingredient) Drug/Non Drug [...] Negative Encounters Encounter Location Date Provider Diagnosis [facility] [address] [place] [address] 06/26/2024 Mark Fernandez Plan Of Treatment No Information Insurance Providers Payer Name Payer Address Payer Phone Subscriber Number Group Number Insured Name Patient Relationship to Insured Coverage Start Date Coverage End Date [facility] [address] [place] [address] [id number] Eugene Castro Self - patient is the insured Medical (General) History Medical History History ICD Code asthma Back,Hip,and Knee pain Diabetic Chicken pox High Blood Pressure
--- OUTSIDE RECORDS SUMMARY | 2025-06-23 16:00 | XMS_ITS | Clinical Summary ---
Author Organization [facility] ity Address [address] [place] [address] Care Team Providers Care Striker Out Name Role Phone Unavailable Primary Care Provider [...] 1999 COVID-19 Vaccine (2023-2 5 season) 2024 Depression Screening 10/29/2024 Influenza Vaccine (#1) 2025 HIB Vaccines Aged Out No longer eligi [...] 5 Years) and At-Risk Patients (6 to 49 Years) Aged Out No longer eligible b ased on patient's age to complete this topic RSV Immunization Patients Un mayra 20 months Aged Out No longer eligible b ased on patient's age to complete this topic Varicella Vaccines Aged Out No longer eligible based on patient's age to complete this topic
[2025-06-23 17:52] LABS: MANUAL DIFF FLAG NO
[2025-06-23 18:22] LABS: Hematocrit 44.0 % (42.0-52.0); Hemoglobin 14.9 g/dl (14.0-18.0); Imm Gran Abs Auto 0.03 X10*3/uL (0.00-0.03); Imm Gran Pct Auto 0.3 % (0.0-0.4); Lymphocytes Absolute Auto 2.9 X10*3/uL (1.2-4.9); Mean Corpuscular HGB Conc 33.9 g/dl (31.0-36.0); Mean Corpuscular Hemoglobin 29.9 pg (27.0-33.0); Mean Corpuscular Volume 88.2 fL (80.0-98.0); NRBC Abs Auto 0.000 X10*3/uL (0.0-0.012); NRBC Pct Auto 0.0 /100WBC (0.0-0.2); Platelet Count 366 X10*3/uL (160-400); Red Blood Count 4.99 X10*6/uL (4.60-5.80); White Blood Count 8.6 X10*3/uL (4.8-10.8)
[2025-06-23 18:52] LABS: Alanine Aminotransferase 50 U/L (0-40); Aspartate Amino Transferase 39 U/L (5-37); Estimated Glomerular Filt Rate > 60
== END 2025-06-23 15:06 | disposition home or self-care (01) ==
LOC: HO.HKASLDS 15:05
PROVIDERS: Visit Provider Internal Medicine Rheumatology
DX: Z79.899 Other long term (current) drug therapy (principal)
CPT/HCPCS: 36415; 82565; 84450; 84460; 85025; 85652; 86140

== ENCOUNTER 2025-06-30 07:55 | Outpatient (REF) | payer OTHER, SELFPAY ==
[2025-06-30 13:33] LABS: Alanine Aminotransferase 46 U/L (0-40); Aspartate Amino Transferase 34 U/L (5-37); Calcium 9.0 mg/dL (8.4-10.2); Magnesium 2.0 mg/dL (1.6-2.6); Potassium 4.7 mmol/L (3.3-5.1); Sodium 142 mmol/L (135-145)
[2025-07-01 08:20] LABS: HBS Num1 97.90 mIU/mL (0-7.99); HBc Num1 0.06 S/CO (0.00-0.79); HBsAGNum1 0.44 S/CO (0.00-0.99); Hepatitis B Surface Antigen Negative (Negative); ~HepC Num1 0.14 S/CO (0.00-0.79); ~Hepatitis B Surface Antibody REACTIVE (Nonreactive); ~Hepatitis C Antibody Nonreactive (Nonreactive)
[2025-07-04 01:33] LABS: HLA B27 Negative (Negative)
== END 2025-06-30 07:56 | disposition home or self-care (01) ==
LOC: HO.HKASLDS 07:55
PROVIDERS: PCP Internal Medicine; Visit Provider Internal Medicine Rheumatology
DX: M47.816 Spondylosis without myelopathy or radiculopathy, lumbar region (principal); M62.838 Other muscle spasm; M79.671 Pain in right foot; M79.672 Pain in left foot; R74.01 Elevation of levels of liver transaminase levels; Z11.59 Encounter for screening for other viral diseases; Z79.60 Long term (current) use of unspecified immunomodulators and immunosuppressants
CPT/HCPCS: 36415; 82310; 83735; 84100; 84132; 84295; 84450; 84460; 86704; 86706; 86803; 86812; 87340

== ENCOUNTER 2025-06-30 07:55 | Outpatient (AMB) | payer OTHER, SELFPAY ==
--- OUTSIDE RECORDS SUMMARY | 2024-11-06 06:00 | XMS_ITS ---
Author Organization [facility] Address [address] [place] [address] Care Team Providers Care Manager Zone Name Role Phone Mark Fernandez Unavailable [phone] Allergies Allergen (clinical drug ingredient) Drug/Non Drug [...] Negative Encounters Encounter Location Date Provider [facility] [address] [address] 11/06/2024 Mark Fernandez Plan Of Treatment No Information Progress Notes * MATTHEW ManjeetbrianDOB:1980 (44 yo M)Acc No.[id number]:11/06/2024 Progress Notes Patient: Eugene ARAUJO Provider: Estela Fernandez DPM :1980 A ge:44 Y S ex:Male Date:11/06/2024 Address:[address] [place] [address] Subjective: * Chief Complaints: * 1 . [...] 0 11/06/2024 Generated for Saravanan Pacheco on: 06/30/2025 07:58 AM EDT
[2025-06-30 07:58] VITALS: BP 120/86; PULSE 77; O2SAT 99; BMI 30.5
--- NOTE | 2025-06-30 07:58 | A.OFFVIS_ITS ---
Vital Signs 06/30/25 07:58 Height 5 ft 11 in Weight 218 lb 8 oz BMI 30.5 BP 120/86 Blood Pressure Location Rt brachial Position Sitting Pulse 77 Pulse Source Pulse Oximeter Pulse Oximetry (%) 99 Intake Visit Reasons: follow up Intake Note: Pt presents today for arthritis. 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 Hands are cramping. Cramps started a week to a month ago. He has not had sulfasalazine for at least a month. He is drinking multiple water bottles a day. He had alcohol for his daughter's sweets 14 birthday republican a week ago. He is having pain in his hands and back. He takes gabapentin at night. He is unable to take gabapentin day due to increased somnolence. [facility] Medical History Rotator cuff injury Physical Exam Vital Signs: Last Vital Signs Pulse 77 06/30/25 07:58 BP 120/86 06/30/25 07:58 Pulse Ox 99 06/30/25 07:58 BMI result Body Mass Index 30.5 Const Other: General: Comfortable CVS: RRR Respiratory: clear to auscultation bilaterally. Good respiratory effort Skin: No lesions seen MSK:Tender R 5th DIPJ with swelling and Heberden nodes present. Tender bilateral MCPs. Normal ROM of shoulders and elbows. 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 Normal range of motion of upper extremity. Assessment & Plan Assessment & Plan (1) Muscle spasm: Code(s): M62.838 - Other muscle spasm Category: Medical Plan: Electrolytes were (2) Lumbar spondylosis: Comment: Localized to L4-L5 disc space narrowing and 0.5 mm retrolisthesis L4 on L5. We discussed conservative management Code(s): M47.816 - Spondylosis without myelopathy or radiculopathy, lumbar region Category: Medical Plan: PT ordered Continue gabapentin 300 mg q.h.s.. He will be following up with PCP within a month. I recommend discussing pain management with PCP Avoid Tylenol due to transaminitis on May lab (3) Transaminitis: Comment: Mild elevation in AST and ALT on May lab Code(s): R74.01 - Elevation of levels of liver transaminase levels Category: Medical Plan: Repeat LFTs this visit Avoid Tylenol (4) Inflammatory arthritis: Comment: He continues to have uncontrolled inflammatory arthritis affecting his hands. He is off of sulfasalazine for a month. I will be checking LFTs as recent labs revealed mild elevation in AST and ALT. 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 He did workup with x-rays and labs recently but I only have some lab results, which revealed normal inflammatory markers. Code(s): M19.90 - Unspecified osteoarthritis, unspecified site Category: Medical Plan: Labs ordered including hepatitis panel Holding sulfasalazine until lab results are back I am avoiding prednisone and NSAIDs due to his recent episode of bloody stools Okay to take ibuprofen 600 mg q.8 hourly PRN pain I have agreed to sign temporary placard for 6 months Return to clinic in 3 months (5) Heel pain, bilateral: Comment: Chronic. Code(s): M79.671 - Pain in right foot; M79.672 - Pain in left foot Category: Medical Plan: X-ray bilateral feet ordered. X-ray report requested this visit. Discussed importance of wearing supportive footwear. 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 Return to clinic in 3 months Orders: Orders Phosphorus Today M62.838 - Other muscle spasm Sodium Today M62.838 - Other muscle spasm Calcium Today M62.838 - Other muscle spasm Magnesium Today M62.838 - Other muscle spasm Potassium Today M62.838 - Other muscle spasm Coding Level of Care Code Est Pt Level 4 (39231) Complex EM visit Add On G2211 Diagnoses Muscle spasm M62.838 Lumbar spondylosis M47.816 Transaminitis R74.01 Inflammatory arthritis M19.90 Heel pain, bilateral M79.671; M79.672
--- OUTSIDE RECORDS SUMMARY | 2025-06-30 07:58 | XMS_ITS | Patient Health Record ---
[facility] Address [address] [place] [address] Care Team Providers Care Digital Learning Platforms Manager Name Role Phone Mark Fernandez Unavailable [phone] Allergies Allergen (clinical drug ingredient) Drug/Non Drug [...] ast year? No Points 0 Interpretation Negative Plan Of Treatment No Information Insurance Providers Payer Name Payer Address Payer Phone Subscriber Number Group Number Insured Name Patient Relationship to Insured Coverage Start Date Coverage End Date [facility] [address] [place] [address] [phone] [id number] Eugene Castro Self - patient is the insured Medical (General) History Medical History History ICD Code asthma Back,Hip,and Knee pain Diabetic Chicken pox High Blood Pressure
--- OUTSIDE RECORDS SUMMARY | 2025-06-30 07:58 | XMS_ITS | Clinical Summary ---
Author Organization [facility] ity Address [address] [place] [address] Care Team Providers Care Hr Generalist Name Role Phone Unavailable Primary Care Provider [...] of 3 - 19+ 3-dose series) 1997 Depression Screening 10/29/2024 COVID-19 Vaccine ( - 2023-2 5 season) 2025 Influenza Vaccine (#1) 2025 HIB Vaccines Aged [...]
== END 2025-06-30 08:31 | disposition home or self-care (01) ==
LOC: HO.RHES 07:55
PROVIDERS: PCP Internal Medicine; Visit Provider Internal Medicine Rheumatology
DX: M62.838 Other muscle spasm (principal); M47.816 Spondylosis without myelopathy or radiculopathy, lumbar region; R74.01 Elevation of levels of liver transaminase levels; M19.90 Unspecified osteoarthritis, unspecified site; M79.671 Pain in right foot; M79.672 Pain in left foot
CPT/HCPCS: 99214